=== PATIENT | female | born 1945 | race Caucasian/White ===

== ENCOUNTER 2021-09-07 16:45 | Emergency (ER) | payer MEDICARE, SELFPAY ==
--- NOTE | ~2021-09-07 | XR_ITS ---
EXAMINATION: [id number]_CR DATE: 09/07/2021 17:32 INDICATION: Right rib pain post fall 2 days prior TECHNIQUE: A frontal inspiratory view of the chest and 3 views of the right ribs were obtained. COMPARISON: Chest radiograph dated 02/25/18 FINDINGS: Right seventh and eighth segmental rib fractures with mildly displaced fractures both posteriorly and laterally at both ribs. Airspace opacity along the lateral rib fractures likely representing either chest wall hematoma or adjacent pulmonary contusion. No other airspace opacities, pulmonary edema, pl eural effusion or pneumothorax. Cardiomediastinal silhouette is normal. Mild S-shaped curvature of th e thoracolumbar spine with moderate to severe spondylosis. IMPRESSION: 1. Mildly displaced segmental fractures of the right seventh and eighth ribs. 2. Small opacity at the lateral right lower lung zone adjacent to the rib fractures which could repre sent either a severe chest wall hematoma or pulmonary contusion. No pleural effusion or pneumothorax. Reviewed, dictated and finalized at location A. IMPRESSION: 1. Mildly displaced segmental fractures of the right seventh and eighth ribs. 2. Small opacity at the lateral right lower lung zone adjacent to the rib fract ures which could represent either a severe chest wall hematoma or pulmonary con tusion. No pleural effusion or pneumothorax.
[2021-09-07 16:54] VITALS: PULSE 74; RESP 20; TEMP 36.9; O2SAT 98
--- NOTE | 2021-09-07 17:03 | ED.FALL ---
HPI - Fall General Chief Complaint: Fall Stated Complaint: Fall Injury/Right Side pain Time Seen by Provider: 09/07/21 17:03 Source: patient Mode of arrival: ambulatory Limitations: no limitations History of Present Illness HPI Narrative: 76-year-old female presents with complaint of right lateral rib pain for 3 days. Patient reports that she sat down to sit on the toilet, missed the toilet and hit ribs on bathtub. Denies shortness of breath. Taking ibuprofen and Tylenol to treat pain with some relief. Wants to make sure she does not have a rib fracture. All systems reviewed and negative except as noted above. Related Data Home Medications Medication Instructions Recorded Confirmed naproxen 500 mg PO BID 09/07/21 09/07/21 Allergies Allergy/AdvReac Type Severity Reaction Status Date / Time No Known Allergies Allergy Verified 09/07/21 17:08 Review of Systems Review of Systems: CONSTITUTIONAL: Denies fever, chills, or sweats. EYES: Denies visual changes, redness, or discharge. ENT: Denies rhinorrhea, congestion, sore throat, or otalgia. CARDIOVASCULAR: Denies chest pain, palpitations, or edema. RESPIRATORY: Denies cough or dyspnea. GASTROINTESTINAL: Denies abdominal pain, nausea, vomiting, or diarrhea. GENITOURINARY: Denies dysuria or hematuria. SKIN: Denies rash or itching. MUSCULOSKELETAL: Denies back pain, joint pain, or myalgia. Reports right lateral rib pain. NEUROLOGIC: Denies headache, numbness, or weakness. PSYCHIATRIC: Denies anxiety or depression. All other systems reviewed are negative, except as documented in HPI. PMFSH Comments At time of signature, agree with nursing past medical, surgical, social and family history. There is no relevant family history pertinent to the presenting complaint. Exam Narrative: GENERAL: This is a well-nourished, well-developed patient, in no apparent distress. HEAD: normocephalic, atraumatic. EYES: PERRL. Sclera clear/white. Vision is grossly intact. EARS: External ears normal, auditory canals clear and without drainage, TMs normal without perforation. Hearing grossly intact. NOSE: External nose normal with no obvious nasal discharge, nares without redness, no rhinorrhea. THROAT: Mucous membranes moist, posterior pharynx clear. NECK: Neck supple, non-tender without lymphadenopathy, masses or thyromegaly. CARDIOVASCULAR: Regular rate and rhythm without murmurs, gallops, or rubs. RESPIRATORY: Clear to auscultation. Breath sounds equal bilaterally. No wheezes, rales, or rhonchi. GASTROINTESTINAL: Abdomen soft, non-tender, nondistended. Bowel sounds are active. No hepato-splenomegaly, or palpable masses. No guarding. SKIN: warm, Dry, intact with no suspicious lesions or rash, good texture and turgor. NEURO: awake, alert, and oriented to person, place and time. There were no obvious focal neurologic abnormalities. EXTREMITIES: No joint tenderness, effusion, or edema noted. No calf tenderness. Negative Homans sign bilaterally. BACK: Nontender without deformity. No CVA tenderness. Tenderness to right lateral ribs, mild swelling, no bruising. Course Course Level of Care: Express Care Visit Vital Signs Vital signs: Vital Signs Temperature 36.9 C 09/07/21 16:54 Pulse Rate 74 09/07/21 16:54 Respiratory Rate 20 09/07/21 16:54 Pulse Oximetry 98 09/07/21 16:54 Temperature 36.9 C 09/07/21 16:54 Pulse Rate 74 09/07/21 16:54 Respiratory Rate 20 09/07/21 16:54 Pulse Oximetry 98 09/07/21 16:54 Reviewed MDM - Fall MDM Narrative Medical decision making narrative: Patient is aware of diagnosis, understands and agrees to treatment plan. Anticipatory guidance given. Patient agrees to follow-up as directed and is aware of reasons to seek care at the emergency department. Portions of this record may have been created with voice recognition software Imaging Data Attestation: I personally reviewed and interpreted this imaging study as follows: My impressi
[2021-09-07 18:18] VITALS: BP 154/84; PULSE 79; RESP 20; O2SAT 97
== END 2021-09-07 18:18 | disposition home or self-care (01) ==
PROVIDERS: Emergency Provider Nurse Practitioner Family
DX: S22.41XA Multiple fractures of ribs, right side, initial encounter for closed fracture (principal); W19.XXXA Unspecified fall, initial encounter
CPT/HCPCS: 71101; 99213; G0463

== ENCOUNTER 2021-09-17 18:23 | Emergency (ER) | payer MEDICARE, SELFPAY ==
--- NOTE | ~2021-09-17 | XR_ITS ---
EXAMINATION: [id number]_[id number]_CR EXAM DATE: 09/17/2021 19:01 INDICATION: Right rib fracture 09/07, increasing pain and cough. TECHNIQUE: Frontal projection of the upper right ribs, frontal projection of the lower right ribs, ob lique projection of the right ribs, frontal chest x-ray(s) for interpretation. Comparison is made to prior examination from 09/07/2021. FINDINGS: There are displaced right 7th and right 8th rib fractures posteriorly and laterally. No con fluent consolidation, pneumothorax or pleural effusion suspected. Cardiomediastinal silhouette is nor mal. IMPRESSION: 1. Acute displaced right 7th and 8th rib fractures posteriorly and laterally. 2. No pneumothorax. Reviewed, dictated and finalized at location G.
--- NOTE | 2021-09-17 18:34 | ED.BACK ---
HPI - Back Pain/Injury General Chief Complaint: Back Pain/Injury Stated Complaint: Fall Injury/Rib Pain Time Seen by Provider: 09/17/21 18:30 Source: patient and RN notes reviewed History of Present Illness HPI Narrative: Patient is a 76-year-old female who presents the urgent care with complaints of continuous right rib pain due to a fall from 04 September. Patient was seen at the facility after falling off the toilet and hitting the side of her bathtub. Patient was given 20 tablets of hydrocodone and states that she is used all the medication with aspirin in between, and is still having progressive pain. Patient denies of any new injury or fall. States that she has been practicing deep breathing but denies of any shortness of breath. Patient states that pain exacerbates on movement and deep breathing. Denies of chest pain. No other acute complaints. No acute distress noted. Patient aware of the plan of care. Some parts of this dictation were generated by voice recognition software and may contain typographical and/or grammatical inaccuracies. Related Data Home Medications Medication Instructions Recorded Confirmed naproxen 500 mg PO BID 09/07/21 09/07/21 amoxicillin-pot clavulanate tablet 09/17/21 Allergies Allergy/AdvReac Type Severity Reaction Status Date / Time No Known Allergies Allergy Verified 09/17/21 18:39 Review of Systems Review of Systems: CONSTITUTIONAL: Denies fever, chills, or sweats. EYES: Denies visual changes, redness, or discharge. ENT: Denies rhinorrhea, congestion, sore throat, or otalgia. CARDIOVASCULAR: Denies chest pain, palpitations, or edema. RESPIRATORY: Reports of mild cough with progressive right rib pain GASTROINTESTINAL: Denies abdominal pain, nausea, vomiting, or diarrhea. GENITOURINARY: Denies dysuria or hematuria. SKIN: Denies rash or itching. MUSCULOSKELETAL: Denies back pain, joint pain, or myalgia. NEUROLOGIC: Denies headache, numbness, or weakness. All other systems reviewed are negative, except as documented in HPI. PMFSH Comments At the time of my signature, I reviewed and agree with the nursing past medical, surgical, social, and family history. There is no relevant family history pertinent to the patient complaint. Exam Narrative: GENERAL: This is a well-nourished, well-developed patient, in no apparent distress. HEAD: normocephalic, atraumatic. EYES: PERRL. Sclera clear/white. Vision is grossly intact. EARS: External ears normal NOSE: External nose normal with no obvious nasal discharge, nares without redness, no rhinorrhea. THROAT: Mucous membranes moist NECK: Neck supple CARDIOVASCULAR: Regular rate and rhythm without murmurs, gallops, or rubs. RESPIRATORY: Clear to auscultation. Diminished bibasilar. Moderate right anterior and posterior rib tenderness SKIN: Large ecchymotic region extending from the right thoracic back wrapping around to the lateral upper right abdomen. Warm, intact with no suspicious lesions or rash, good texture and turgor. NEURO: awake, alert, and oriented to person, place and time. There were no obvious focal neurologic abnormalities. EXTREMITIES: No clubbing, cyanosis, or edema. BACK: Moderate right thoracic tenderness Course Course Level of Care: Express Care Visit Vital Signs Vital signs: Vital Signs Temperature 99.3 F 09/17/21 18:36 Pulse Rate 112 H 09/17/21 18:36 Respiratory Rate 16 09/17/21 18:36 Blood Pressure 181/78 H 09/17/21 18:36 Pulse Oximetry 98 09/17/21 18:36 Temperature 99.3 F 09/17/21 18:36 Pulse Rate 112 H 09/17/21 18:36 Respiratory Rate 16 09/17/21 18:36 Blood Pressure 181/78 H 09/17/21 18:36 Pulse Oximetry 98 09/17/21 18:36 Reviewed-patient is informed that they may have pre-hypertension or hypertension based on a blood pressure reading in the department. I recommend the patient call the primary care provider listed on their discharge instructions or a physician of their choice this we
[2021-09-17 18:36] VITALS: BP 181/78; PULSE 112; RESP 16; TEMP 37.4; O2SAT 98
== END 2021-09-17 19:42 | disposition home or self-care (01) ==
PROVIDERS: Emergency Provider Nurse Practitioner Family
DX: S22.41XA Multiple fractures of ribs, right side, initial encounter for closed fracture (principal); W18.11XA Fall from or off toilet without subsequent striking against object, initial encounter
CPT/HCPCS: 71101; 99213; G0463

== ENCOUNTER 2022-02-08 14:13 | Inpatient (IN) | payer MEDICARE, MEDICAID, SELFPAY ==
--- NOTE | ~2022-02-08 | XR_ITS ---
EXAMINATION: XR chest 1V portable INDICATION: Leukocytosis and chest pain TECHNIQUE: Portable AP chest at 1312 hours COMPARISON: 02/08/2022 FINDINGS: Patchy opacities have developed throughout the right lung. No pleural effusion or pneumotho rax. The cardiomediastinal silhouette is normal. There is osteoarthritis of the shoulders. IMPRESSION: 1. New patchy opacities of the right lung, consistent with pneumonia versus atelectasis versus asymme tric pulmonary edema. Reviewed, dictated and finalized at location A. IMPRESSION: 1. New patchy opacities of the right lung, consistent with pneumonia versus ate lectasis versus asymmetric pulmonary edema.
--- NOTE | ~2022-02-08 | MR_ITS ---
EXAMINATION: MR brain/brain stem wo/w con DATE: 02/09/2022 14:08 INDICATION: Headache. Cerebrovascular accident. TECHNIQUE: Magnetic resonance imaging (MRI) of the brain and brainstem was performed without and with 15 mL MultiHance intravenous contrast. COMPARISON: Head CT 02/08/2022 FINDINGS: There is an acute infarct involving right temporoparietal region and right insula. There ar e scattered areas of low attenuation in the cerebral white matter, cerebellar white matter, deep arenas nuclei, and monique. There is an old lacunar infarct in left thalamus. There is an old infarct in the r ight basal ganglia. The ventricles are normal in size. There is mild mucosal thickening in the ethmoi d sinuses. There are likely changes of ocular lens replacement surgeries. The mastoid air cells are n ormal. IMPRESSION: 1. Acute infarct involving the right temporal parietal region and right insula. 2. Old infarcts involving the left thalamus and right basal ganglia. 3. Extensive nonspecific cerebral white matter disease, cerebellar white matter disease, disease of t he deep arenas nuclei, and pontine disease, which likely represents chronic small vessel ischemic disea se. Reviewed, dictated and finalized at location A. IMPRESSION: 1. Acute infarct involving the right temporal parietal region and right insula. 2. Old infarcts involving the left thalamus and right basal ganglia. 3. Extensive nonspecific cerebral white matter disease, cerebellar white matter disease, disease of the deep arenas nuclei, and pontine disease, which likely re presents chronic small vessel ischemic disease.
--- NOTE | ~2022-02-08 | CT_ITS ---
EXAMINATION: CT brain wo con DATE: 02/08/2022 15:15 INDICATION: Headache TECHNIQUE: Computed tomography (CT) of the head was performed without intravenous contrast. The dose- length product was 681.00 mGy-cm.. Automated exposure control and iterative reconstruction technique were employed. COMPARISON: None FINDINGS: There is a chronic right parietal infarction with encephalomalacia. Generalized atrophy. Th ere are scattered severe periventricular and subcortical white matter changes, most likely related to small vessel ischemic disease (microangiopathy). Severe chronic left thalamic infarction. No acute intracranial hemorrhage, infarction, mass or mass e ffect. IMPRESSION: 1. No acute intracranial abnormality. 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 3: Chronic age-related findings. Reviewed, dictated and finalized at location A.
--- NOTE | ~2022-02-08 | XR_ITS ---
XR chest 1V portable 02/08/2022 14:42 Indication: Headache Procedure: AP portable chest Comparison: 02/25/2018 Findings: Heart size normal. No focal air space disease, pulmonary edema, pleural effusion or suspect ed pneumothorax. No acute osseous abnormality. Impression: 1: No acute cardiopulmonary disease. Reviewed, dictated and finalized at location A. Impression: 1: No acute cardiopulmonary disease.
--- NOTE | ~2022-02-08 | CT_ITS ---
EXAMINATION: CTA BRAIN/CAROTID DATE: 02/11/2022 07:01 INDICATION: Stroke symptoms TECHNIQUE: Computed tomographic angiography (CTA) of the head and neck was performed with 100 mL Omni paque-350 intravenous contrast. Multiplanar reconstructions and maximum intensity projection 3D-recon structions of the carotid arteries and of the intracranial arteries were created by the technologist on a separate workstation. Precontrast CT of the head was also obtained. Automated exposure control and iterative reconstruction technique were employed.The dose-length product was 1771.95 mGy-cm. COMPARISON: Head CT dated 02/08/2022 and brain MR dated 02/09/2022 FINDINGS: Carotid arteries: Atherosclerotic plaque along the normal caliber aortic arch and along the great vessels arising from the arch. No dissection. 70% stenosis at the origin of the right subclavian artery. There is 25% sten osis of the right carotid bulb relative to normal distal artery lumen diameter (NASCET criteria). The re is 40% stenosis of the left carotid bulb relative to normal distal artery lumen diameter. Multinod ular goiter with 2.6 cm peripherally enhancing nodule in the right thyroid lobe with a couple subcent imeter left thyroid nodules. Cervical soft tissues are otherwise unremarkable. Visualized portions of the mid and upper lungs are clear. No pathologically enlarged cervical or upper thoracic lymphadenop athy. Head: Continued evolution of the known subacute infarct involving the right temporoparietal region and righ t insula. Additional old infarcts in the left thalamus and right basal ganglia. No acute intracranial hemorrhage, new acute infarction or abnormal extra axial fluid collection. Ventricles are normal and symmetric. No masses identified. The orbits, paranasal sinuses and mastoid air cells are normal. Intracranial arteries: Vertebral arteries are codominant. 50% stenosis on the left vertebral artery. Extensive atherosclerot ic calcifications along the bilateral carotid siphons but with no hemodynamically significant stenosi s. Bilateral A1 and P1 segments are patent. In addition there are patent anterior communicating and l eft posterior communicating arteries. There is no hemodynamically significant stenosis in the vertebr al, basilar and internal carotid arteries. There is subtle luxury perfusion along the gyri at the per iphery of the infarcted region of the right temporoparietal lobe. There is attenuation of the small p eripheral contrast-enhanced cerebral arteries located more centrally in the region of infarct. Cerebr al arterial arborization appears otherwise symmetric. IMPRESSION: 1. 25% stenosis of the right carotid bulb relative to normal distal artery lumen diameter (NASCET cri teria). 2. 40% stenosis of the left carotid bulb relative to normal distal artery lumen diameter. 3. 50% stenosis along intracranial portion of the left vertebral artery. 4. 70% stenosis at the origin of the right subclavian artery which could predispose towards subclavia n steal phenomena. 5. Attenuation of the smaller cerebral arteries centrally within a region of acute subacute infarct i nvolving the right temporoparietal region and insula with some peripheral luxury perfusion. 6. Smaller old lacunar infarcts at the left thalamus and right basal ganglia. Reviewed, dictated and finalized at location A. IMPRESSION: 1. 25% stenosis of the right carotid bulb relative to normal distal artery lume n diameter (NASCET criteria). 2. 40% stenosis of the left carotid bulb relative to normal distal artery lumen diameter. 3. 50% stenosis along intracranial portion of the left vertebral artery. 4. 70% stenosis at the origin of the right subclavian artery which could predis pose towards subclavian steal phenomena.
[2022-02-08 14:15] VITALS: BP 114/78; PULSE 98; RESP 20; TEMP 36.5; O2SAT 97
[2022-02-08 14:26] LABS: Glucose Point of Care 268 mg/dl (65-105)
--- NOTE | 2022-02-08 14:28 | ECG_ITS ---
Measurements Intervals [place] Rate: 98 P: 51 TN: 165 QRS: 9 QRSD: 81 T: 81 QT: 350 QTc: 448 Interpretive Statements SINUS RHYTHM WITH OCCASIONAL VENTRICULAR PREMATURE COMPLEXES NONSPECIFIC ST & T-WAVE ABNORMALITY BORDERLINE ECG NO PREVIOUS ECG AVAILABLE FOR COMPARISON Electronically Signed On 02-08-2022 14:49:41 CDT by Tu Munoz M.D.
--- NOTE | 2022-02-08 14:33 | ED.NEUROSD ---
HPI - Neuro Symptoms/Deficit General Chief Complaint: Neuro Symptoms/Deficit Stated Complaint: stroke like symptoms - fast 1 hx cva L side def Source: patient and EMS Mode of arrival: EMS Limitations: clinical condition History of Present Illness HPI Narrative: Patient is 77 years old white female brought to the emergency room from [facility] with the chief complaint of headache mainly on the right side of the head. Started few hours prior to arrival to the emergency room. The nurse at the rehab center told me that the patient was found to be a little bit of, looking to the right side, unable to keep sitting or standing without extra campus administrative assistant. Also told me that patient baseline is awake, alert and oriented x4 and audible to walk with a walker and 1 assist and. And patient is full code. Patient has been to the rehab center since February 02 this month. Patient had history of hypertension, COPD, diabetes. Had a recent diagnosis of acute infarction to the right parietal lobe with left side weakness on January 26 [facility]. Currently patient is on aspirin, Plavix and Lovenox 40 mg once a day. Related Data Home Medications Medication Instructions Recorded Confirmed naproxen 500 mg tablet 500 mg PO BID 09/07/21 09/07/21 amoxicillin 875 mg-potassium tablet 09/17/21 clavulanate 125 mg tablet Allergies Allergy/AdvReac Type Severity Reaction Status Date / Time No Known Allergies Allergy Verified 09/17/21 18:39 Review of Systems Review of Systems: All systems reviewed & are unremarkable except as noted in HPI and below PMFSH Social History Social History Smoking status: Former smoker Exam Narrative: General appearance: Well-developed, well-nourished Skin: Normal color Head: Normocephalic, nontraumatic Eyes: Clear conjunctiva ENT: Oropharynx normal, ears normal, nose normal Neck: Supple, nontender Chest and respiratory: Airway patent, no respiratory distress, no accessory muscle use Heart: Regular rate/rhythm Abdomen: Soft, nontender, no organomegaly, quiet bowel sounds Vascular: Normal peripheral pulses, normal capillary refill. Musculoskeletal: Normal range of motion, nontender back Neurologic: Alert and oriented ?3, left facial drooping, right gaze Course Consultations Consultation #1: DR RIDLEY Date: 02/08/22 Time: 15:20 Vital Signs Vital signs: Vital Signs Temperature 36.5 C 02/08/22 14:15 Pulse Rate 98 02/08/22 14:15 Respiratory Rate 20 02/08/22 14:15 Blood Pressure 114/78 02/08/22 14:15 Pulse Oximetry 97 02/08/22 14:15 Oxygen Delivery Room Air 02/08/22 14:15 Temperature 36.5 C 02/08/22 14:15 Pulse Rate 98 02/08/22 14:15 Respiratory Rate 20 02/08/22 14:15 Blood Pressure 114/78 02/08/22 14:15 Pulse Oximetry 97 02/08/22 14:15 Oxygen Delivery Room Air 02/08/22 14:15 MDM - Neuro Symptoms/Deficit Lab Data Labs: Lab Results 02/08/22 Range/Units 14:17 POC Capillary Glucose 268 H (65-105) mg/dl Imaging Data Radiologist's impression: Impressions Chest X-Ray 02/08/22 14:46 Impression: 1: No acute cardiopulmonary disease. Head CT 02/08/22 15:16 IMPRESSION: 1. No acute intracranial abnormality. 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 3: Chronic age-related findings. Discharge Plan Discharge Clinical Impression: Headache, Acute hyponatremia, Status post CVA Patient Disposition: Still a Patient Condition: Stable Prescriptions: No Action naproxen 500 mg Tablet 500 mg PO BID hydrocodone-acetaminophen 5-325 mg tablet
[2022-02-08 14:43] LABS: Basophils Absolute Auto 0.1 K/mm3 (0.0-0.1); Basophils Percent Auto 0.6 % (0.2-1.2); Eosinophils Absolute Auto 0.1 K/mm3 (0-0.3); Eosinophils Percent Auto 0.7 % (0-4.4); Hematocrit 41.9 % (37.0-47.0); Immature Granulocyte Absolute 0.08 K/mm3 (0.00-0.031); Immature Granulocyte Percent A 0.6 % (0-0.5); Lymphocytes Absolute Auto 1.91 K/mm3 (0.9-3.2); Lymphocytes Percent Auto 13.6 % (18.3-44.2); Mean Corpuscular HGB Conc 33.4 g/dl (32-36); Mean Corpuscular Hemoglobin 31.5 pg (26-34); Mean Corpuscular Volume 94.4 fl (80-100); Mean Platelet Volume 9.9 fl (7.4-10.4); Monocytes Absolute Auto 0.9 K/mm3 (0.1-0.6); Monocytes Percent Auto 6.6 % (2.6-8.5); Neutrophils Absolute Auto 10.9 K/mm3 (1.3-6.7); Neutrophils Percent Auto 77.9 % (45.5-73.1); Platelet Count Result 439 k/mm3 (150-375); Red Blood Count 4.44 M/mm3 (4.2-5.4); Red Cell Distribution Width 13.7 % (11.5-14.5)
[2022-02-08 14:52] VITALS: BP 114/78; PULSE 96; RESP 22; O2SAT 95
[2022-02-08 14:52] LABS: Alanine Aminotransferase 29 U/L (6-35); Albumin Level 3.6 g/dL (3.5-5.1); Alkaline Phosphatase 50 U/L (38-126); Anion Gap 9 mmol/L (8-16); Aspartate Amino Transferase 24 U/L (14-36); Bilirubin,Total 0.9 mg/dL (0.2-1.3); Blood Urea Nitrogen 12 mg/dL (7-17); Calcium 8.5 mg/dL (8.4-10.2); Carbon Dioxide 27 mmol/L (22-30); Chloride 93 mmol/L (98-107); Estimated CRCL calculation 73 ml/min; Estimated Glomerular Filt Rate > 60; Glucose 278 mg/dL (65-110); Potassium 3.5 mmol/L (3.4-5.0); Sodium 129 mmol/L (137-145)
[2022-02-08 15:04] LABS: Troponin I < 0.012 ng/mL (0.000-0.034)
[2022-02-08 15:26] LABS: Partial Thromboplastin Time 27.1 SECONDS (22.3-36.8)
[2022-02-08 15:35] LABS: INR 1.2; Prothrombin Time 14.7 Seconds (11.1-14.7)
[2022-02-08] MEDS: SODIUM CHLORIDE 0.9% IV 1,000 ML 60 ML IV CONT (16:39)
--- NOTE | 2022-02-08 16:54 | PM.IMHP ---
H&P: HPI History of Present Illness Date/Time: 02/08/22 16:54 Chief Complaint: Stroke symptoms Narrative: This is a 77-year-old female patient who was brought to the emergency room a from the [place] [facility] facility with complaints of a headache mostly to the right side of her head. She recently had a CVA 01/26/2022 where she was diagnosed at [facility]. The patient had left-sided affect from her last stroke. However today the patient was noted to be leaning more to her right side and looking off to her right side she was unable to walk with a walker. The patient has been in the rehab facility since 02/02/2022 patient is on aspirin Plavix and Lovenox at the rehab facility. Head CT was noted today as the following 1. No acute intracranial abnormality. 2:? 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 3:? Chronic age-related findings. Chest x-ray from today shows no acute cardiopulmonary disease. The patient is awake and she is talking. She is able to move all extremities and the left side upper lower still remains slightly weaker than the right. Her white count was noted to be 14.0 today. Her sodium was found to be low at 129 today with a previous sodium level of 132 and 127 earlier this month. She does have some leukocytes and some wbc's in her urine. The patient is being admitted to observation on the date of service of 02/08/2022. Review of Systems Review of Systems: See HPI All systems reviewed & are unremarkable except as noted in HPI and below Constitutional: Constitutional: Reports as per HPI and Reports no additional constitutional complaints Eyes: Eyes: Reports as per HPI and Reports no additional eye complaints ENT: Reports system reviewed and no additional complaints, except as documented and Reports Normal hearing present Cardiovascular: Cardiovascular: Reports no additional cardiovascular complaints Respiratory: Respiratory: Reports no additional respiratory complaints and Reports no additional respiratory complaints Gastrointestinal: Gastrointestinal: Reports as per HPI and Reports no additional gastrointestinal complaints Musculoskeletal: Musculoskeletal: Reports no additional musculoskeletal complaints Integumentary/Breasts: Skin/Breast: Reports system reviewed and no additional complaints, except as docu and Reports as per HPI Neurologic: Reports system reviewed and no additional complaints, except as documented, Reports as per HPI and Reports Normal hearing present Psychiatric: Psychiatric: Reports no additional psychiatric complaints and Reports as per HPI Endocrine: Endocrine: Reports no additional endocrine complaints Hematologic/Lymphatic: Hematologic/Lymphatic: Reports no additional hematologic/lymphatic complaints Allergic/Immunologic: Allergic/Immunologic: Reports no additional allergic/immunologic complaints FOR[facility], [facility] Past Medical History Medical History (Updated 02/08/22 @ 19:23 by Bonnie Holliday NP) COPD (chronic obstructive pulmonary disease) CVA (cerebral vascular accident) Diabetes mellitus Hypertension Surgical History Surgical History (Updated 02/08/22 @ 16:59 by Bonnie Holliday NP) History of appendectomy History of section, classical History of tonsillectomy Family History Family History (Updated 02/08/22 @ 17:00 by Bonnie Holliday NP) Sibling H/O multiple myeloma Father Cerebrovascular accident Social History Social History (Updated 02/08/22 @ 19:17 by Bonnie Holliday NP) Social History: The patient has 2 children and she is . She was living with her daughter until she had a stroke. She is now at [place] [facility]. The patient is a former smoker. She is retired. Her daughter karla is the durable power charger tester for healthcare. Code status full code Smoking status: Former smoker Alcohol intake: former Substance use: unknown Spiritual care concerns: No Meds Home Medications and Allergies Ho
[2022-02-08 17:21] VITALS: BP 157/70; PULSE 98; RESP 20; O2SAT 97
[2022-02-08 17:32] LABS: Appearance Urine Slightly Cloudy (Clear); Bilirubin Urine Negative (Negative); Blood Urine Negative (Negative); Color Urine Yellow (Yellow); Glucose Urine UA 2+ mg/dL (Negative); Ketones Urine Negative (Negative); Leukocyte Esterase Ur 1+ LEU/UL (Negative); Nitrate Urine Negative (Negative); Protein Urine Negative (Negative)
[2022-02-08 17:37] LABS: Bacteria Urine Trace /hpf; Mucus Urine Rare /lpf; Squamous Epithelial Cell Urine Occasional /hpf (Few); WBC Urine 16-20 /hpf
[2022-02-08 17:38] LABS: Add Urine Microscopic? YES
[2022-02-08 18:40] VITALS: BMI 30.4
[2022-02-08 20:00] VITALS: PULSE 110
[2022-02-08 22:00] VITALS: BP 143/61; PULSE 98; RESP 17; TEMP 36.9; O2SAT 91
[2022-02-09] VITALS (9 sets, daily range): BP systolic 116–161; BP diastolic 52–71; PULSE 66–91; RESP 15–18; TEMP 36.1–36.6; O2SAT 92–95
[2022-02-09 06:28] LABS: Basophils Absolute Auto 0.1 K/mm3 (0.0-0.1); Basophils Percent Auto 0.5 % (0.2-1.2); Eosinophils Absolute Auto 0.1 K/mm3 (0-0.3); Eosinophils Percent Auto 0.6 % (0-4.4); Hematocrit 39.4 % (37.0-47.0); Hemoglobin 13.3 g/dL (12.0-15.0); Immature Granulocyte Absolute 0.08 K/mm3 (0.00-0.031); Immature Granulocyte Percent A 0.6 % (0-0.5); Lymphocytes Absolute Auto 1.71 K/mm3 (0.9-3.2); Lymphocytes Percent Auto 13.3 % (18.3-44.2); Mean Corpuscular HGB Conc 33.8 g/dl (32-36); Mean Corpuscular Hemoglobin 31.5 pg (26-34); Mean Corpuscular Volume 93.4 fl (80-100); Monocytes Percent Auto 7.5 % (2.6-8.5); Neutrophils Percent Auto 77.5 % (45.5-73.1); Platelet Count Result 392 k/mm3 (150-375); Red Blood Count 4.22 M/mm3 (4.2-5.4); Red Cell Distribution Width 13.4 % (11.5-14.5); White Blood Count 12.9 K/mm3 (4.5-10.0)
[2022-02-09 06:38] LABS: Anion Gap 6 mmol/L (8-16); Blood Urea Nitrogen 10 mg/dL (7-17); Calcium 8.1 mg/dL (8.4-10.2); Carbon Dioxide 27 mmol/L (22-30); Chloride 98 mmol/L (98-107); Estimated CRCL calculation 73 ml/min; Estimated Glomerular Filt Rate > 60; Glucose 192 mg/dL (65-110); Magnesium 2.1 mg/dL (1.6-2.3); Potassium 3.5 mmol/L (3.4-5.0); Sodium 131 mmol/L (137-145)
[2022-02-09 06:41] LABS: Hemoglobin A1C 8.8 % (<5.7)
[2022-02-09] MEDS: SODIUM CHLORIDE 0.9% IV 1,000 ML 60 ML IV CONT (07:48)
--- NOTE | 2022-02-09 08:33 | WPDNEURCNPN ---
Assessment and Plan Assessment and plan (1) CVA (cerebral vascular accident): Code(s): I63.9 - Cerebral infarction, unspecified Status: Acute Assessment and Plan: Ms. Cartagena is a 77 year old female with HTN, DM and recent right parietal stroke presenting due to initial concerns for right sided weakness. Concern for possible new stroke vs seizure. She does have evidence of prior left thalamic stroke on CT which could potentially explain right sided weakness. Although on my exam today her strength on the right is completely normal. Plan - MRI brain pending - if new stroke, will repeat stroke work-up -- CTA and echo, lipid panel - Continue ASA, Plavix, and Lipitor - Will obtain routine EEG Consult date: 02/09/22 Reason for consult: Stroke HPI: Ileana Crowder is a 77 year old female with a history of HTN, DM, COPD and recent right parietal stroke presenting for new right sided weakness. On 01/26 patient presented due to altered mental status. She was found to have subcortical hypodensities on CTH and MRI brain showed acute infarct in the right parietal lobe. She was started on ASA and Plavix and sent to [facility]. On 02/08, it was noted that she was having difficulty walking. They later found her in bed slumped to the right with gaze to the right. Due to concern for new focal findings she was transferred to [facility]. At [facility] she had CT head which showed prior R parietal and left thalamic strokes. EKG sinus rhythm. UA was abnormal. Labs significant for leukocytosis (WBC 14), and mild hyponatremia (129). HgbA1c was done this morning which was 8.8. She is on Lipitor 20mg as well. BP this morning was 158/61. Daughter feels that overall she looks a lot better today than she did yesterday. She smokes 1/2ppd for past 50 years. Denies any alcohol use. Family history is significant for stroke and HTN in father, dementia in mother, multiple myeloma in brother and sister, and skin cancer in brother. Review of Systems Constitutional: Constitutional: Reports weakness Eyes: Comments: visual field deficit ENT: Reports Normal hearing present and Denies dysphagia Cardiovascular: Cardiovascular: Reports no additional cardiovascular complaints Respiratory: Respiratory: Reports no additional respiratory complaints Gastrointestinal: Gastrointestinal: Reports no additional gastrointestinal complaints Genitourinary: Genitourinary: Reports no additional female genitourinary complaints Musculoskeletal: Musculoskeletal: Reports no additional musculoskeletal complaints Integumentary/Breasts: Skin/Breast: Reports system reviewed and no additional complaints, except as docu Neurologic: Reports as per HPI Psychiatric: Psychiatric: Reports anxiety and Reports depression PMFSH Past Medical History Medical History COPD (chronic obstructive pulmonary disease) CVA (cerebral vascular accident) Diabetes mellitus Hypertension Surgical History Surgical History History of appendectomy History of section, classical History of tonsillectomy Family History Family History Sibling H/O multiple myeloma Father Cerebrovascular accident Social History Social History Social History: The patient has 2 children and she is . She was living with her daughter until she had a stroke. [facility] The patient is a former smoker. She is retired. Her daughter karla is the durable power attorney at law for healthcare. Code status full code Smoking status: Former smoker Alcohol intake: former Substance use: unknown Spiritual care concerns: No Meds Home Medications and Allergies Home Medications Medication Instructions Recorded Confirmed Type hydrocodone
[2022-02-09 08:34] LABS: Glucose Point of Care 187 mg/dl (65-105)
[2022-02-09] MEDS: INSULIN GLARGINE (*BKC) 100 UNITS/ML 10 UNITS SUB-Q (08:46)
[2022-02-09] MEDS: NAPROXEN 500 MG TABLET PO ×2 (08:50→16:12)
[2022-02-09] MEDS: lisinopriL 20 MG TABLET 40 MG PO (08:50)
[2022-02-09] MEDS: CLOPIDOGREL BISULFATE 75 MG TABLET PO (08:50)
[2022-02-09] MEDS: ASPIRIN 81 MG CHEWABLE TABLET PO (08:51)
[2022-02-09] MEDS: amLODIPine BESYLATE 5 MG TABLET 10 MG PO (08:51)
[2022-02-09] MEDS: CALCIUM CARBONATE (TUMS) 500 MG (200 MG ELEMENTAL) PO ×2 (08:51→16:11)
[2022-02-09] MEDS: NICOTINE (*PBKC) 7 MG PATCH 1 PATCH TRANSDERM (08:52)
[2022-02-09] MEDS: ATORVASTATIN 20 MG TABLET PO (08:53)
[2022-02-09 11:58] LABS: Glucose Point of Care 246 mg/dl (65-105)
[2022-02-09] MEDS: INSULIN ASPART (*BKC) 100 UNITS/ML SUB-Q ×2 (11:59→16:56)
--- NOTE | 2022-02-09 13:25 | WPDNEUROLOGY ---
Neurology EEG Report General Information Date of Study: 02/09/22 TEST Routine EEG DIAGNOSIS Status post CVA; Headache CONDITION OF RECORDING Drowsiness and sleep EEG NUMBER [id number] CLINICAL HISTORY Ms. Cartagena is a 77 year old female with HTN, DM and recent right parietal stroke presenting due to initial concerns for right sided weakness. Concern for possible new stroke vs seizure. EEG DESCRIPTION No significant asymmetries of background activities are noted. With drowsiness there is was waxing and waning of the dominant rhythm with eventual replacement by a mixture of theta and delta activity. As the patient enters stage II sleep, symmetrical spindles and vertex sharp waves are present. Arousal is unremarkable. There are no epileptiform discharges or seizures during this recording. Hyperventilation and photic stimulation were not performed. IMPRESSION This is a normal routine EEG recorded in drowsy and sleep states. There are no electrographic seizures identified, nor are there any epileptiform discharges. Please note that a normal EEG cannot exclude a seizure disorder. Clinical correlation is recommended.
--- NOTE | 2022-02-09 13:44 | PM.IMPN ---
Progress Note: A&P Assessment and Plan (1) CVA (cerebral vascular accident): Code(s): I63.9 - Cerebral infarction, unspecified Status: Acute (2) Abnormal urine: Code(s): R82.90 - Unspecified abnormal findings in urine Status: Acute (3) Hypertension: Code(s): I10 - Essential (primary) hypertension Status: Acute (4) COPD (chronic obstructive pulmonary disease): Code(s): J44.9 - Chronic obstructive pulmonary disease, unspecified Status: Acute (5) Diabetes mellitus: Code(s): E11.9 - Type 2 diabetes mellitus without complications Status: Acute (6) Status post CVA: Code(s): Z86.73 - Personal history of transient ischemic attack (TIA), and cerebral infarction without residual deficits Status: Acute (7) Hyponatremia: Code(s): E87.1 - Hypo-osmolality and hyponatremia Status: Acute Plan # headache and right-sided few hours prior to her arrival increased weakness right side which was new. # recent CVA on 01/26/[address] [facility]. Acute CVA on right parietal lobe leading to left-sided weakness treated at [facility]. Neurology consulted. On aspirin and Plavix. No repeat echo or carotid studies performed this admission. MRI ordered. Worsening right-sided weakness. CT head with left thalamic infarction along with right parietal infarction noted to be chronic PT OT evaluation. Neurology has been consulted. On aspirin Plavix and Lipitor. COVID is negative # abnormal UA : Urine culture report pending. Rocephin empirically # hypertension on Norvasc/lisinopril # COPD continue albuterol inhalers. Not in exacerbation # type 2 diabetes mellitus Accu-Cheks AC. A1c 8.8 # hyponatremia gentle hydration chronically low # DVT prophylaxis Lovenox # code status full code Subjective Date/time seen: 02/09/22 13:44 Interval history: HPI:This is a 77-year-old female patient who [facility] with complaints of a headache mostly to the right side of her head.? She recently had a CVA 01/26/2022 where she was diagnosed at [facility].? The patient had left-sided affect from her last stroke.? However today the patient was noted to be leaning more to her right side and looking off to her right side she was unable to walk with a walker.? The patient has been in the rehab facility since 02/02/2022 patient is on aspirin Plavix and Lovenox at the rehab facility.? Head CT was noted today as the following 1. No acute intracranial abnormality. 2:? 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 3:? Chronic age-related findings. Chest x-ray from today shows no acute cardiopulmonary disease.? The patient is awake and she is talking.? She is able to move all extremities and the left side upper lower still remains slightly weaker than the right.? Her white count was noted to be 14.0 today.? Her sodium was found to be low at 129 today with a previous sodium level of 132 and 127 earlier this month.? She does have some leukocytes and some wbc's in her urine.? The patient is being admitted to observation on the date of service of 02/08/2022. 02/09/2022 patient wants to go home. Weakness has improved. [facility] at [facility] Review of Systems Review of Systems: All systems reviewed & are unremarkable except as noted in HPI and below Exam Narrative: General appearance: Well-developed, well-nourished Skin: Normal color restless Head: Normocephalic, nontraumatic Eyes: Clear conjunctiva ENT: Oropharynx normal, ears normal, nose normal Neck: Supple, nontender Chest and respiratory: Airway patent, no respiratory distress, no accessory muscle use Heart: Regular rate/rhythm S1-S2 heard Abdomen: Soft, nontender, no organomegaly, quiet bowel sounds Vascular: Normal peripheral pulses, normal capillary refill. Musculoskeletal: Normal range of motion, nontender ba
--- NOTE | 2022-02-09 13:49 | PCPTNOTE ---
Attempted PT evaluation, patient at MRI. Will Follow.
[2022-02-09 17:12] LABS: Glucose Point of Care 213 mg/dl (65-105)
[2022-02-10] VITALS (10 sets, daily range): BP systolic 139–164; BP diastolic 68–71; PULSE 67–84; RESP 18–20; TEMP 36.4–36.9; O2SAT 96–98; BMI 11.0
--- NOTE | 2022-02-10 | ECHO_ITS ---
Patient Info Name: Ileana Crowder Age: 77 years : 1945 Gender: Female Ht: 65 in Wt: 182 lbs BSA: 1.97 m2 HR: 72 bpm BP: 164 / 70 mmHg Heart Rhythm: Sinus Rhythm Exam Date: 02/10/2022 2:23 PM Exam Location: [facility] Patient Status: Inpatient Admit Date: 02/09/2022 Staff Ordering Physician: Jayson Ro MD Reference Investigator: Nitesh Renee, WAYNE, RT Attending Provider: Jayson Ro MD Exam Type: CA echo doppler color flow Study Info Indications I63.239 - Cerebral infarction due to unspecified occlusion or stenosis of unspecified carotid arteries Complete two-dimensional, color flow and Doppler transthoracic echocardiogram is performed. Strain analysis performed. Summary 1. Complete two-dimensional, color flow and Doppler transthoracic echocardiogram is performed. 2. Left ventricular chamber dimension is normal. 3. Left ventricular systolic function is normal, estimated at 65-70%. 4. There is moderately increased left ventricular wall thickness. 5. The left ventricular diastolic function is grade I diastolic dysfunction. 6. Global longitudinal strain is abnormal at -14 %. 7. Left atrial chamber dimension is moderately enlarged. 8. There is mild mitral valve regurgitation. 9. There is mild tricuspid valve regurgitation. Left Ventricle Left ventricular chamber dimension is normal. Left ventricular systolic function is normal, estimated at 65-70%. There is moderately increased left ventricular wall thickness. The left ventricular diastolic function is grade I diastolic dysfunction. Global longitudinal strain is abnormal at -14 %. Right Ventricle Right ventricular chamber dimension is normal. Right ventricular systolic function is normal. Left Atria Left atrial chamber dimension is moderately enlarged. Right Atria Right atrial chamber dimension is normal. Atrial Septum Suspected patent foramen ovale visualized by color flow imaging. Aortic Valve The aortic valve is not well visualized. There is mild aortic valve sclerosis. There is no aortic valve stenosis. There is trace aortic valve regurgitation. Pulmonic Valve The pulmonic valve is not well visualized. There is no pulmonic valve stenosis. Mitral Valve The mitral valve has normal leaflets. There is no mitral valve stenosis. There is mild mitral valve regurgitation. Tricuspid Valve The tricuspid valve leaflets are normal. There is no significant tricuspid valve stenosis. There is mild tricuspid valve regurgitation. Pericardium/Pleural The pericardium appears normal. There is no pericardial effusion. Inferior Vena Cava Normal inferior vena cava with <50% collapse upon inspiration consistent with elevated right atrial pressure, 10 mmHg. Aorta The aortic root size at the sinus of Valsalva is normal. Left Ventricular Outflow Tract Name Value Normal LVOT 2D LVOT Diameter 2.0 cm LVOT Doppler LVOT Peak Gradient 4 mmHg LVOT Mean Gradient 2 mmHg LVOT VTI 20 cm LVOT VTI/AV VTI Ratio 0.
[2022-02-10 00:45] LABS: Glucose Point of Care 261 mg/dl (65-105)
--- NOTE | 2022-02-10 05:43 | PC.NURSE ---
Pt has been very up set tonight and wanting staff in room most of the time. Appears to understand directions but has difficulty in following them. Ana Cristina study was used to take pt to bathroom to help with safety. Pt had a small BM and was assisted back to bed. She later around 2330 said she wanted something to have a BM. Was assisted to the bathroom with the Ana Cristina steady. She started threatening staff & wanted her Daughter called . Call was placed to daughter with message to call the Hospital. Pt was asked what kind of laxative or stimulant she usually used and said she didn't use any. When Dr Parisi was reached she gave order for dulcolax suppository. Pt was informed of the order and she said no she didn't want it. Dr Parisi was again called and order was given for an enema. Pt said no she would not take it Now said she could have miralax daily which she agreed to.
[2022-02-10 07:06] LABS: Basophils Absolute Auto 0.1 K/mm3 (0.0-0.1); Basophils Percent Auto 0.5 % (0.2-1.2); Eosinophils Absolute Auto 0.1 K/mm3 (0-0.3); Eosinophils Percent Auto 0.3 % (0-4.4); Hematocrit 41.2 % (37.0-47.0); Hemoglobin 13.4 g/dL (12.0-15.0); Immature Granulocyte Absolute 0.15 K/mm3 (0.00-0.031); Immature Granulocyte Percent A 0.7 % (0-0.5); Lymphocytes Absolute Auto 1.01 K/mm3 (0.9-3.2); Lymphocytes Percent Auto 4.8 % (18.3-44.2); Mean Corpuscular HGB Conc 32.5 g/dl (32-36); Mean Corpuscular Volume 95.4 fl (80-100); Mean Platelet Volume 9.7 fl (7.4-10.4); Monocytes Absolute Auto 1.3 K/mm3 (0.1-0.6); Monocytes Percent Auto 6.3 % (2.6-8.5); Neutrophils Absolute Auto 18.3 K/mm3 (1.3-6.7); Neutrophils Percent Auto 87.4 % (45.5-73.1); Platelet Count Result 382 k/mm3 (150-375); Red Blood Count 4.32 M/mm3 (4.2-5.4); Red Cell Distribution Width 13.2 % (11.5-14.5)
[2022-02-10 07:14] LABS: Alanine Aminotransferase 35 U/L (6-35); Albumin Level 3.5 g/dL (3.5-5.1); Alkaline Phosphatase 55 U/L (38-126); Anion Gap 8 mmol/L (8-16); Aspartate Amino Transferase 32 U/L (14-36); Bilirubin,Total 0.6 mg/dL (0.2-1.3); Blood Urea Nitrogen 11 mg/dL (7-17); Calcium 8.7 mg/dL (8.4-10.2); Carbon Dioxide 24 mmol/L (22-30); Chloride 99 mmol/L (98-107); Estimated CRCL calculation 86 ml/min; Estimated Glomerular Filt Rate > 60; Glucose 198 mg/dL (65-110); Magnesium 2.1 mg/dL (1.6-2.3); Potassium 3.6 mmol/L (3.4-5.0); Sodium 131 mmol/L (137-145)
[2022-02-10 07:48] LABS: Glucose Point of Care 179 mg/dl (65-105)
--- NOTE | 2022-02-10 08:37 | WPDNEUROPN ---
Progress Note: A&P Assessment and Plan (1) CVA (cerebral vascular accident): Code(s): I63.9 - Cerebral infarction, unspecified Status: Acute Assessment and Plan: Ms. Cartagena is a 77 year old female with HTN, DM and recent right parietal stroke presenting due to initial concerns for right sided weakness. MRI brain done which showed acute stroke in the right frontoparietal area. Etiology of stroke still unclear. EEG was unremarkable Plan - Recommend CTA head and neck, surface echo, and lipid panel - Continue ASA 81mg and Plavix 75mg for 3 months, then continue just Aspirin monotherapy - Continue Lipitor Subjective Date/time seen: 02/10/22 08:37 Interval history: Ileana Crowder is a 77 year old female with a history of HTN, DM, COPD and recent right parietal stroke presenting for new right sided weakness. On 01/26 patient presented due to altered mental status. She was found to have subcortical hypodensities on CTH and MRI brain showed acute infarct in the right parietal lobe. She was started on ASA and Plavix and sent to [facility]. On 02/08, it was noted that she was having difficulty walking. They later found her in bed slumped to the right with gaze to the right. Due to concern for new focal findings she was transferred to [facility]. MRI brain showed acute right frontoparietal infarct. She is on Lipitor, ASA, and Plavix. HgbA1c was 8.8. EKG sinus rhythm. WBC seems to be uptrending. Patient's daughter concerned about recurrence of stroke. Review of Systems Constitutional: Constitutional: Reports weakness ENT: Reports Normal hearing present and Denies dysphagia Cardiovascular: Cardiovascular: Reports no additional cardiovascular complaints Respiratory: Respiratory: Reports no additional respiratory complaints Gastrointestinal: Gastrointestinal: Reports no additional gastrointestinal complaints and Denies dysphagia Genitourinary: Genitourinary: Reports no additional female genitourinary complaints Musculoskeletal: Musculoskeletal: Reports no additional musculoskeletal complaints Integumentary/Breasts: Skin/Breast: Reports system reviewed and no additional complaints, except as docu Neurologic: Reports as per HPI, Reports Normal hearing present and Reports weakness Psychiatric: Psychiatric: Reports anxiety and Reports depression Exam Const: General: comfortable and no acute distress HENMT: Mouth: Yes moist mucous membranes Eyes: General: appearance normal, both eyes and all related structures Pupils: Equal, round and reactive pupils present EOM: EOMs intact bilaterally Resp: Effort & Inspection: normal respiratory effort Skin: General skin exam: normal color and no rashes or lesions noted Neuro: Cranial nerves: Yes Equal, round and reactive pupils present and Yes Normal hearing present Other: AOx2, Pupils equal and reactive bilaterally, EOMI, face symmetric, facial sensation intact, tongue protrudes midline, palate midline. Shoulder shrug normal. Sensation intact throughout. Reflexes 2+ in biceps, patellar, and AJ bilaterally, FNF normal bilaterally, Gait deferred. Language comprehension and fluency intact. Left homonymous hemianopia. Left sided hemineglect. RUE/RLE strength 5/5 throughout, LUE strength 4+/5, LLE strength 4+/5. Extrem: General: normal to inspection Psych: Other: oriented to person and place Objective Data Vital Signs Vital Signs: Vital Signs - 24 hr 02/09/22 12:00 02/09/22 14:37 02/09/22 14:00 Temperature 36.1 C L Pulse Rate 80 78 Respiratory Rate 15 Blood Pressure 161/71 H Pulse Oximetry 94 Oxygen Delivery Room Air 02/09/22 16:00 02/09/22 21:39 02/09/22 20:00 Temperature 36.4 C Pulse Rate 87 66 73 Respiratory Rate 16 Blood Pressure 116/52 L Pulse Oximetry 95 Oxygen Delivery 02/09/22 20:00 02/10/22 00:00 02/10/22 04:00 Temperature Pulse Rate 67 78 Respiratory Rate Blood Pressure Pulse Oximetry
[2022-02-10] MEDS: INSULIN GLARGINE (*BKC) 100 UNITS/ML 10 UNITS SUB-Q (08:57)
[2022-02-10] MEDS: ASPIRIN 81 MG CHEWABLE TABLET PO (08:59)
[2022-02-10] MEDS: CLOPIDOGREL BISULFATE 75 MG TABLET PO (08:59)
[2022-02-10] MEDS: NAPROXEN 500 MG TABLET PO ×2 (08:59→16:42)
[2022-02-10] MEDS: CALCIUM CARBONATE (TUMS) 500 MG (200 MG ELEMENTAL) PO ×2 (08:59→16:42)
[2022-02-10] MEDS: ATORVASTATIN 20 MG TABLET PO (08:59)
[2022-02-10] MEDS: NICOTINE (*PBKC) 7 MG PATCH 1 PATCH TRANSDERM (09:00)
[2022-02-10] MEDS: lisinopriL 20 MG TABLET 40 MG PO (09:00)
[2022-02-10] MEDS: amLODIPine BESYLATE 5 MG TABLET 10 MG PO (09:00)
[2022-02-10] MEDS: polyethylene glycoL 3350 17 GM POWD.PACK PO (09:03)
--- NOTE | 2022-02-10 09:30 | PCOTNOTE ---
Attempted to see patient this am, however patient refused. Pt sleeping upon entering. She was easily aroused but very drowsy, stated, Not right now.
--- NOTE | 2022-02-10 10:25 | PCPTNOTE ---
Attempted to see patient this morning. Patient refused to do Physical Therapy this morning. Patient stated that she was extremely tired and was nauseous. RN notified.
[2022-02-10] MEDS: ACETAMINOPHEN 325 MG TABLET 650 MG PO (11:12)
[2022-02-10 11:31] LABS: Glucose Point of Care 237 mg/dl (65-105)
[2022-02-10] MEDS: INSULIN ASPART (*BKC) 100 UNITS/ML SUB-Q ×2 (11:48→16:42)
[2022-02-10 12:58] LABS: Cholesterol 99 mg/dL (0-200); HDL Direct 34 mg/dL; Triglycerides 83 mg/dL (<150)
[2022-02-10 13:09] LABS: LDL Cholesterol Direct 34 mg/dL
[2022-02-10 16:16] LABS: Glucose Point of Care 229 mg/dl (65-105)
--- NOTE | 2022-02-10 18:05 | PM.IMPN ---
Progress Note: A&P Assessment and Plan (1) CVA (cerebral vascular accident): Code(s): I63.9 - Cerebral infarction, unspecified Status: Acute (2) Abnormal urine: Code(s): R82.90 - Unspecified abnormal findings in urine Status: Acute (3) Hypertension: Code(s): I10 - Essential (primary) hypertension Status: Acute (4) COPD (chronic obstructive pulmonary disease): Code(s): J44.9 - Chronic obstructive pulmonary disease, unspecified Status: Acute (5) Diabetes mellitus: Code(s): E11.9 - Type 2 diabetes mellitus without complications Status: Acute (6) Status post CVA: Code(s): Z86.73 - Personal history of transient ischemic attack (TIA), and cerebral infarction without residual deficits Status: Acute (7) Hyponatremia: Code(s): E87.1 - Hypo-osmolality and hyponatremia Status: Acute Plan # headache and right-sided few hours prior to her arrival increased weakness right side which was new. # recent CVA on 01/26/2022 transferred to [facility] facility. Acute CVA on right parietal lobe leading to left-sided weakness treated at [facility]. Neurology consulted. On aspirin and Plavix. No repeat echo or carotid studies performed this admission. MRI reordered which came back positive for acute stroke in right parietotemporal area. Discussed with Neurology. Reviewed previous MRI and CTA done she has bilateral middle cerebral artery stenosis. Increase atorvastatin to 40 mg continue on aspirin and Plavix. CT head with left thalamic infarction along with right parietal infarction noted to be chronic PT OT evaluation. Neurology has been consulted. On aspirin Plavix and Lipitor. COVID is negative Will also get CTA to evaluate and also echocardiogram # abnormal UA : Urine culture report pending. Rocephin empirically # leukocytosis worsening will panculture. Repeat chest x-ray showed right opacities possible aspiration will get speech to see change antibiotic to Zosyn. # hypertension on Norvasc/lisinopril # COPD continue albuterol inhalers. Not in exacerbation # type 2 diabetes mellitus Accu-Cheks AC. A1c 8.8 Discussed dietitian consultation for Diabetes Education # hyponatremia gentle hydration chronically low # DVT prophylaxis Lovenox # code status full code Discussed was neurologist Subjective Date/time seen: 02/10/22 18:05 Interval history: HPI:This is a 77-year-old female patient who was brought to the emergency room a from the [facility] facility with complaints of a headache mostly to the right side of her head.? She recently had a CVA 01/26/2022 where she was diagnosed at [facility].? The patient had left-sided affect from her last stroke.? However today the patient was noted to be leaning more to her right side and looking off to her right side she was unable to walk with a walker.? The patient has been in the rehab facility since 02/02/2022 patient is on aspirin Plavix and Lovenox at the rehab facility.? Head CT was noted today as the following 1. No acute intracranial abnormality. 2:? 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 3:? Chronic age-related findings. Chest x-ray from today shows no acute cardiopulmonary disease.? The patient is awake and she is talking.? She is able to move all extremities and the left side upper lower still remains slightly weaker than the right.? Her white count was noted to be 14.0 today.? Her sodium was found to be low at 129 today with a previous sodium level of 132 and 127 earlier this month.? She does have some leukocytes and some wbc's in her urine.? The patient is being admitted to observation on the date of service of 02/08/2022. 02/09/2022 patient wants to go home. Weakness has improved. [facility] at [facility] 02/10/2022 no overnight events. MRI brain reviewed with the patient and family. Discussed with the neurologist. Weakness about the same
[2022-02-10] MEDS: HYDROcodone/acetaminophen (*CRX) 5-325 MG TABLET 1 TAB PO (21:12)
[2022-02-11] VITALS (8 sets, daily range): BP systolic 132–164; BP diastolic 45–74; PULSE 67–86; RESP 18–20; TEMP 36.1–36.4; O2SAT 94–97
[2022-02-11] MEDS: ONDANSETRON INJ 4 MG/2 ML VIAL IV PUSH (05:26)
[2022-02-11 07:21] LABS: Glucose Point of Care 171 mg/dl (65-105)
[2022-02-11 08:00] LABS: Basophils Absolute Auto 0.1 K/mm3 (0.0-0.1); Basophils Percent Auto 0.4 % (0.2-1.2); Eosinophils Absolute Auto 0.1 K/mm3 (0-0.3); Eosinophils Percent Auto 0.5 % (0-4.4); Hematocrit 40.2 % (37.0-47.0); Hemoglobin 13.7 g/dL (12.0-15.0); Immature Granulocyte Percent A 0.6 % (0-0.5); Lymphocytes Absolute Auto 1.22 K/mm3 (0.9-3.2); Lymphocytes Percent Auto 7.2 % (18.3-44.2); Mean Corpuscular HGB Conc 34.1 g/dl (32-36); Mean Corpuscular Hemoglobin 32.3 pg (26-34); Mean Corpuscular Volume 94.8 fl (80-100); Mean Platelet Volume 9.8 fl (7.4-10.4); Monocytes Absolute Auto 1.3 K/mm3 (0.1-0.6); Monocytes Percent Auto 7.3 % (2.6-8.5); Neutrophils Absolute Auto 14.3 K/mm3 (1.3-6.7); Platelet Count Result 378 k/mm3 (150-375); Red Blood Count 4.24 M/mm3 (4.2-5.4); Red Cell Distribution Width 13.2 % (11.5-14.5)
[2022-02-11 08:13] LABS: Alanine Aminotransferase 29 U/L (6-35); Albumin Level 3.5 g/dL (3.5-5.1); Alkaline Phosphatase 58 U/L (38-126); Anion Gap 8 mmol/L (8-16); Aspartate Amino Transferase 20 U/L (14-36); Bilirubin,Total 0.9 mg/dL (0.2-1.3); Blood Urea Nitrogen 8 mg/dL (7-17); Calcium 8.8 mg/dL (8.4-10.2); Carbon Dioxide 27 mmol/L (22-30); Chloride 95 mmol/L (98-107); Estimated CRCL calculation 86 ml/min; Estimated Glomerular Filt Rate > 60; Glucose 167 mg/dL (65-110); Potassium 3.6 mmol/L (3.4-5.0); Sodium 130 mmol/L (137-145)
[2022-02-11] MEDS: INSULIN GLARGINE (*BKC) 100 UNITS/ML 10 UNITS SUB-Q (09:24)
[2022-02-11] MEDS: NICOTINE (*PBKC) 7 MG PATCH 1 PATCH TRANSDERM (09:34)
[2022-02-11] MEDS: CLOPIDOGREL BISULFATE 75 MG TABLET PO (09:36)
[2022-02-11] MEDS: ATORVASTATIN 40 MG TABLET PO (09:36)
[2022-02-11] MEDS: CALCIUM CARBONATE (TUMS) 500 MG (200 MG ELEMENTAL) PO ×2 (09:36→17:38)
[2022-02-11] MEDS: NAPROXEN 500 MG TABLET PO ×2 (09:36→17:38)
[2022-02-11] MEDS: ASPIRIN 81 MG CHEWABLE TABLET PO (09:36)
[2022-02-11] MEDS: lisinopriL 20 MG TABLET 40 MG PO (09:36)
[2022-02-11] MEDS: amLODIPine BESYLATE 5 MG TABLET 10 MG PO (09:37)
[2022-02-11] MEDS: ACETAMINOPHEN 325 MG TABLET 650 MG PO (09:37)
[2022-02-11 11:30] LABS: Glucose Point of Care 277 mg/dl (65-105)
--- NOTE | 2022-02-11 11:41 | PCNSR ---
On 02/11/22, the student, Christy Willett, provided care and completed [facility] documentation on this patient. I have reviewed the student's documentation and agree with the findings.
--- NOTE | 2022-02-11 11:57 | WPDNEUROPN ---
Progress Note: A&P Assessment and Plan (1) CVA (cerebral vascular accident): Code(s): I63.9 - Cerebral infarction, unspecified Status: Acute Assessment and Plan: Ms. Cartagena is a 77 year old female with HTN, DM and recent right parietal stroke presenting due to initial concerns for right sided weakness. MRI brain done which showed acute stroke in the right frontoparietal area. Etiology of stroke likely large vessel disease given extensive stenosis noted on CTA. EEG was unremarkable Plan - Continue ASA 81mg and Plavix 75mg for 3 months, then continue just Aspirin monotherapy - Agree with increasing Lipitor to 40mg daily - Follow[place]up in [facility] Subjective Date/time seen: 02/11/22 11:57 Interval history: Ileana Crowder is a 77 year old female with a history of HTN, DM, COPD and recent right parietal stroke presenting for new right sided weakness. On 01/26 patient presented due to altered mental status. She was found to have subcortical hypodensities on CTH and MRI brain showed acute infarct in the right parietal lobe. She was started on ASA and Plavix and sent to [facility]. On 02/08, it was noted that she was having difficulty walking. They later found her in bed slumped to the right with gaze to the right. Due to concern for new focal findings she was transferred to [facility]. MRI brain showed acute right frontoparietal infarct. She is on Lipitor, ASA, and Plavix. HgbA1c was 8.8. EKG sinus rhythm. Echo negative for clot. CT angiogram of head and neck showed extensive atherosclerotic disease in bilateral ICA, left vertebral artery, and right subclavian artery. Review of Systems Review of Systems: All systems reviewed & are unremarkable except as noted in HPI and below Exam Const: General: comfortable and no acute distress HENMT: Mouth: Yes moist mucous membranes Eyes: General: appearance normal, both eyes and all related structures Resp: Effort & Inspection: normal respiratory effort Auscultation: clear to auscultation bilaterally Cardio: Rate: regular rate Rhythm: regular rhythm Skin: General skin exam: normal color Neuro: Speech: normal speech Other: AOx2, Pupils equal and reactive bilaterally, EOMI, face symmetric, facial sensation intact, tongue protrudes midline, palate midline. Shoulder shrug normal. Sensation intact throughout, Gait deferred. Language comprehension and fluency intact. Left homonymous hemianopia. Left sided hemineglect. RUE/RLE strength 5/5 throughout, LUE strength 4+/5, LLE strength 4+/5. Extrem: General: normal to inspection Other: Psych: Mental Status: mental status grossly normal Objective Data Vital Signs Vital Signs: Vital Signs - 24 hr 02/10/22 12:00 02/10/22 14:00 02/10/22 16:00 Temperature 36.6 C Pulse Rate 83 84 84 Respiratory Rate 20 Blood Pressure 152/68 H Pulse Oximetry 97 Oxygen Delivery 02/10/22 20:50 02/10/22 20:05 02/10/22 20:05 Temperature 36.4 C Pulse Rate 75 78 75 Respiratory Rate 18 18 Blood Pressure 139/71 Pulse Oximetry 96 96 Oxygen Delivery Room Air 02/11/22 00:00 02/11/22 04:00 02/11/22 06:00 Temperature 36.1 C L Pulse Rate 75 73 68 Respiratory Rate 20 Blood Pressure 164/74 H Pulse Oximetry 94 Oxygen Delivery 02/11/22 08:00 Temperature Pulse Rate 84 Respiratory Rate Blood Pressure Pulse Oximetry Oxygen Delivery Intake/Output Intake/Output: Intake & Output 02/08/22 02/09/22 02/10/22 02/11/22 23:59 23:59 23:59 23:59 Intake Total 50 1220 1044 700 Balance 50 1220 1044 700 Meds/Results Medications: Active Medications Generic Name Dose Route Start Last Admin Trade Name Freq PRN Reason Stop Dose Admin Acetaminophen 650 mg 02/08/22 19:36 02/11/22 09:37 Acetaminophen 325 Mg Tablet PO 650 mg Q6H PRN Administration PAIN RATED 1-3 Hydrocodone Bitart/Acetaminophen 1 tab 02/08/22 19:29 02/10/22 21:12 Hydroco
[2022-02-11] MEDS: INSULIN ASPART (*BKC) 100 UNITS/ML SUB-Q ×2 (12:22→17:25)
--- NOTE | 2022-02-11 15:36 | PC.NURSE ---
Called [facility], about patient's discharge. Brian stated that the patient cannot discharge due to insurance authorization approval - pending.
[2022-02-11 16:07] LABS: Glucose Point of Care 283 mg/dl (65-105)
--- NOTE | 2022-02-11 16:37 | PM.IMPN ---
Progress Note: A&P Assessment and Plan (1) CVA (cerebral vascular accident): Code(s): I63.9 - Cerebral infarction, unspecified Status: Acute Assessment and Plan: Appreciate neurological consultation, continue aspirin and Plavix for 3 months then discontinue Plavix, increase Lipitor to 40 mg daily and follow-up outpatient with the neurology clinic (2) Abnormal urine: Code(s): R82.90 - Unspecified abnormal findings in urine Status: Acute Assessment and Plan: Cultures showed normal tasneem, discontinue Rocephin (3) Hypertension: Code(s): I10 - Essential (primary) hypertension Status: Acute (4) COPD (chronic obstructive pulmonary disease): Code(s): J44.9 - Chronic obstructive pulmonary disease, unspecified Status: Acute Assessment and Plan: Stable (5) Diabetes mellitus: Code(s): E11.9 - Type 2 diabetes mellitus without complications Status: Acute Assessment and Plan: Uncontrolled, A1c 8.8, Accu-Cheks plus sliding scale insulin, monitor (6) Status post CVA: Code(s): Z86.73 - Personal history of transient ischemic attack (TIA), and cerebral infarction without residual deficits Status: Acute (7) Hyponatremia: Code(s): E87.1 - Hypo-osmolality and hyponatremia Status: Acute Assessment and Plan: Chronic, asymptomatic, stable (8) Aspiration pneumonia: Code(s): J69.0 - Pneumonitis due to inhalation of food and vomit Status: Acute Assessment and Plan: Concern for possible aspiration pneumonia, was originally on Rocephin, this was switched to Zosyn, will change to Levaquin for discharge Plan DVT prophylaxis with Lovenox Code status full code Subjective Date/time seen: 02/11/22 16:37 Interval history: Patient eager to leave the hospital. No overnight events noted. No chest pain or shortness of breath. No nausea, vomiting or diarrhea. No fevers or chills. Review of Systems Review of Systems: 12 point review of systems was assessed and was negative except as noted in the HPI Exam Narrative: General: No acute distress, alert and oriented per baseline HEENT: Atraumatic, normocephalic, mucous membranes moist CV: Regular rate and rhythm, S1, S2 Lungs: Clear to auscultation bilaterally, no rales or crackles noted, no wheezes, good air entry Abdomen: Soft, nontender, nondistended Extremities: Normal to inspection Skin: No rashes noted, no lesions or wounds seen Psych: Euthymic, normal affect Objective Data Vital Signs Vital Signs: Vital Signs - 24 hr 02/10/22 20:50 02/10/22 20:05 02/10/22 20:05 Temperature 97.6 F Pulse Rate 75 78 75 Respiratory Rate 18 18 Blood Pressure 139/71 Pulse Oximetry 96 96 Oxygen Delivery Room Air 02/11/22 00:00 02/11/22 04:00 02/11/22 06:00 Temperature 97 F L Pulse Rate 75 73 68 Respiratory Rate 20 Blood Pressure 164/74 H Pulse Oximetry 94 Oxygen Delivery 02/11/22 08:00 02/11/22 12:00 02/11/22 14:00 Temperature 97.2 F L Pulse Rate 84 70 77 Respiratory Rate 20 Blood Pressure 146/52 H Pulse Oximetry 97 Oxygen Delivery 02/11/22 16:00 Temperature Pulse Rate 86 Respiratory Rate Blood Pressure Pulse Oximetry Oxygen Delivery Intake/Output Intake/Output: Intake & Output 02/08/22 02/09/22 02/10/22 02/11/22 23:59 23:59 23:59 23:59 Intake Total 50 1220 1044 830 Balance 50 1220 1044 830 Meds/Results Medications: Active Medications Generic Name Dose Route Start Last Admin Trade Name Freq PRN Reason Stop Dose Admin Acetaminophen 650 mg 02/08/22 19:36 02/11/22 09:37 Acetaminophen 325 Mg Tablet PO 650 mg Q6H PRN Administration PAIN RATED 1-3 Hydrocodone Bitart/Acetaminophen 1 tab 02/08/22 19:29 02/10/22 21:12 Hydrocodone/Acetaminophen (*Crx) 5-325 Mg Tablet PO 1 tab Q6H PRN Administration PAIN RATED 4-6 Albuterol 2 puff 02/08/22 19:36 Al
[2022-02-11] MEDS: levoFLOXacin 750 MG TABLET PO (17:45)
[2022-02-11 21:50] LABS: Glucose Point of Care 210 mg/dl (65-105)
[2022-02-11] MEDS: MAG HYDROX/AL HYDROX/SIMETH 30 ML UDC PO (22:05)
[2022-02-12 06:00] VITALS: BP 149/61; PULSE 78; RESP 20; TEMP 36.2; O2SAT 94
[2022-02-12 08:20] LABS: Glucose Point of Care 161 mg/dl (65-105)
--- NOTE | 2022-02-12 08:26 | PM.DS ---
DS: Admitting Diagnosis Discharge Date February 12, 2022 Admitting Diagnosis CVA DS: Discharge Diagnosis Discharge Diagnosis (1) CVA (cerebral vascular accident): Code(s): I63.9 - Cerebral infarction, unspecified Status: Acute Assessment and Plan: Appreciate neurological consultation, continue aspirin and Plavix for 3 months then discontinue Plavix, increase Lipitor to 40 mg daily and follow-up outpatient with the neurology clinic (2) Abnormal urine: Code(s): R82.90 - Unspecified abnormal findings in urine Status: Acute Assessment and Plan: Cultures showed normal tasneem, discontinue Rocephin (3) Hypertension: Code(s): I10 - Essential (primary) hypertension Status: Acute (4) COPD (chronic obstructive pulmonary disease): Code(s): J44.9 - Chronic obstructive pulmonary disease, unspecified Status: Acute Assessment and Plan: Stable (5) Diabetes mellitus: Code(s): E11.9 - Type 2 diabetes mellitus without complications Status: Acute Assessment and Plan: Uncontrolled, A1c 8.8, Accu-Cheks plus sliding scale insulin, monitor (6) Status post CVA: Code(s): Z86.73 - Personal history of transient ischemic attack (TIA), and cerebral infarction without residual deficits Status: Acute (7) Hyponatremia: Code(s): E87.1 - Hypo-osmolality and hyponatremia Status: Acute Assessment and Plan: Chronic, asymptomatic, stable (8) Aspiration pneumonia: Code(s): J69.0 - Pneumonitis due to inhalation of food and vomit Status: Acute Assessment and Plan: Concern for possible aspiration pneumonia, was originally on Rocephin, this was switched to Zosyn, will change to Levaquin for discharge Plan DVT prophylaxis with Lovenox Code status full code DS: Summary Hospital Course Hospital Course: 37-year-old female with past medical history significant for CVA earlier this is presenting new onset headache as well as ataxia. She was thought to have another CVA and admitted for further workup. Neurology was consulted and ordered MRI as well as EEG. EEG was noted to be within normal limits. Echo was performed and showed an EF of 65-70% with grade 1 diastolic dysfunction. No significant pulmonary hypertension. MRI did show a new acute stroke in the frontoparietal area. Therefore CTA head and neck were ordered. They also recommended aspirin and Plavix for 3 months and then just aspirin monotherapy after that as well as Lipitor. CTA showed extensive atherosclerotic disease in the bilateral ICA, left vertebral artery and right subclavian artery. Patient was discharged in good condition on dual anti-platelet therapy for 3 months then monotherapy with aspirin after that as well as increased dose of Lipitor and close outpatient follow-up with the neurology clinic. Time Spent with Patient Time attestation: Total time spent providing and/or coordinating discharge services: Exam Narrative: General: No acute distress, alert and oriented per baseline HEENT: Atraumatic, normocephalic, mucous membranes moist CV: Regular rate and rhythm, S1, S2 Lungs: Clear to auscultation bilaterally, no rales or crackles noted, no wheezes, good air entry Abdomen: Soft, nontender, nondistended Extremities: Normal to inspection Skin: No rashes noted, no lesions or wounds seen Psych: Euthymic, normal affect DS: Data Data Completed and Pending Labs on day of discharge: Labs from last 24 hours 02/12/22 02/11/22 02/11/22 08:16 21:45 16:04 POC Capillary Glucose 161 H 210 H 283 H 02/11/22 11:28 POC Capillary Glucose 277 H Preliminary micro results at discharge 02/10/22 12:42 Blood Culture - Preliminary Blood 02/10/22 12:42 Blood Culture - Preliminary Blood Discharge Plan Discharge Attending physician on discharge: Yamila Jordan Consulting providers: Sg Saucedo Discharging Clinician: Nikki
[2022-02-12] MEDS: ENOXAPARIN 40 MG/0.4 ML SYRINGE SUB-Q (08:39)
[2022-02-12] MEDS: polyethylene glycoL 3350 17 GM POWD.PACK PO (08:39)
[2022-02-12] MEDS: lisinopriL 20 MG TABLET 40 MG PO (08:39)
[2022-02-12] MEDS: amLODIPine BESYLATE 5 MG TABLET 10 MG PO (08:39)
[2022-02-12] MEDS: ATORVASTATIN 40 MG TABLET PO (08:39)
[2022-02-12] MEDS: CLOPIDOGREL BISULFATE 75 MG TABLET PO (08:40)
[2022-02-12] MEDS: CALCIUM CARBONATE (TUMS) 500 MG (200 MG ELEMENTAL) PO (08:40)
[2022-02-12] MEDS: NICOTINE (*PBKC) 7 MG PATCH 1 PATCH TRANSDERM (08:40)
[2022-02-12] MEDS: ASPIRIN 81 MG CHEWABLE TABLET PO (08:40)
[2022-02-12] MEDS: NAPROXEN 500 MG TABLET PO (08:40)
[2022-02-12] MEDS: INSULIN GLARGINE (*BKC) 100 UNITS/ML 10 UNITS SUB-Q (08:45)
[2022-02-12 11:49] LABS: Glucose Point of Care 202 mg/dl (65-105)
--- NOTE | 2022-02-12 11:58 | PCPTNOTE ---
The patient treatment was not able to be completed at this time due to patient eating lunch. Will plan to continue treatment per plan of care.
[2022-02-12] MEDS: INSULIN ASPART (*BKC) 100 UNITS/ML SUB-Q (12:04)
[2022-02-12 12:26] LABS: Basophils Absolute Auto 0.1 K/mm3 (0.0-0.1); Basophils Percent Auto 0.9 % (0.2-1.2); Eosinophils Absolute Auto 0.1 K/mm3 (0-0.3); Eosinophils Percent Auto 0.7 % (0-4.4); Hematocrit 39.7 % (37.0-47.0); Hemoglobin 13.5 g/dL (12.0-15.0); Immature Granulocyte Absolute 0.04 K/mm3 (0.00-0.031); Immature Granulocyte Percent A 0.4 % (0-0.5); Lymphocytes Absolute Auto 1.54 K/mm3 (0.9-3.2); Lymphocytes Percent Auto 13.9 % (18.3-44.2); Mean Corpuscular Hemoglobin 32.3 pg (26-34); Mean Platelet Volume 9.6 fl (7.4-10.4); Monocytes Absolute Auto 0.9 K/mm3 (0.1-0.6); Neutrophils Absolute Auto 8.4 K/mm3 (1.3-6.7); Neutrophils Percent Auto 76.1 % (45.5-73.1); Platelet Count Result 388 k/mm3 (150-375); Red Blood Count 4.18 M/mm3 (4.2-5.4); Red Cell Distribution Width 13.4 % (11.5-14.5); White Blood Count 11.1 K/mm3 (4.5-10.0)
[2022-02-12 12:40] LABS: Alanine Aminotransferase 47 U/L (6-35); Albumin Level 3.6 g/dL (3.5-5.1); Alkaline Phosphatase 68 U/L (38-126); Anion Gap 6 mmol/L (8-16); Aspartate Amino Transferase 44 U/L (14-36); Bilirubin,Total 0.7 mg/dL (0.2-1.3); Blood Urea Nitrogen 12 mg/dL (7-17); Calcium 8.8 mg/dL (8.4-10.2); Carbon Dioxide 29 mmol/L (22-30); Chloride 94 mmol/L (98-107); Estimated CRCL calculation 86 ml/min; Estimated Glomerular Filt Rate > 60; Glucose 193 mg/dL (65-110); Potassium 3.9 mmol/L (3.4-5.0); Sodium 129 mmol/L (137-145)
== END 2022-02-12 12:46 | DRG 64 ==
LOC: ANHED 15:53 → ANH3MEDSUR 17:20
PROVIDERS: Internal Medicine; Nurse Practitioner; Admitting Provider Hospitalist; Emergency Provider Emergency Medicine; PCP Hospitalist; Visit Provider Student in an Organized Health Care Education/Training Program
DX: I63.9 Cerebral infarction, unspecified (principal); J69.0 Pneumonitis due to inhalation of food and vomit; G81.91 Hemiplegia, unspecified affecting right dominant side; I69.354 Hemiplegia and hemiparesis following cerebral infarction affecting left non-dominant side; E87.1 Hypo-osmolality and hyponatremia; I65.23 Occlusion and stenosis of bilateral carotid arteries; I65.02 Occlusion and stenosis of left vertebral artery; I70.90 Unspecified atherosclerosis; I10 Essential (primary) hypertension; J44.9 Chronic obstructive pulmonary disease, unspecified; E11.9 Type 2 diabetes mellitus without complications; R29.704 NIHSS score 4; Z79.01 Long term (current) use of anticoagulants; Z79.82 Long term (current) use of aspirin; Z87.891 Personal history of nicotine dependence; Z79.4 Long term (current) use of insulin
CPT/HCPCS: 36415; 70450; 70496; 70498; 70553; 71045; 80048; 80053; 80061; 81001; 82948; 83036; 83735; 84443; 84484; 85025; 85610; 85730; 87040; 87077; 87086; 87088; 93005; 93306; 95816; 96365; 97110; 97116; 97162; 97166; 97530; 99285; A9270; A9577; G0378; J0696; J1650; J1815; J2405; J2543; J7030; Q9967